=== PATIENT | male | born 1980 | race African-American/Black ===

== ENCOUNTER 2017-02-03 10:52 | Emergency (ER) | payer SELFPAY ==
[2017-02-03] MEDS ORDERED: ONDANSETRON 4 MG TAB.RAPDIS PO ONE (11:13)
[2017-02-03] MEDS ORDERED: NORMAL SALINE 1000 ML 1,000 ML IV ONE (11:14)
--- NOTE | 2017-02-03 11:14 | ER Document Report ---
ED Medical Screen (RME) - General Chief Complaint: Vomiting Stated Complaint: VOMITING Notes: This 36-year-old male patient take 2 diabetes reports onset last night of nausea and vomiting with one episode of diarrhea. He does feel little weak. He was sweating some. He did not check sugars last night. I have greeted and performed a rapid initial assessment of this patient. A comprehensive ED assessment and evaluation of the patient, analysis of test results and completion of the medical decision making process will be conducted by additional ED providers. TRAVEL OUTSIDE OF THE [place] IN LAST 30 DAYS: No - Related Data Allergies/Adverse Reactions: No Known Allergies Allergy (Unverified 04/24/13 06:11) Past Medical History Neurological Medical History: Reports: Hx Seizures - possible Renal/ Medical History: Denies: Hx Peritoneal Dialysis - Immunizations Hx Diphtheria, Pertussis, Tetanus Vaccination: Yes - 04/24/2013 Physical Exam - Vital signs Vitals: Temp Pulse Resp BP Pulse Ox 98.2 F 70 16 119/73 99 02/03/17 10:55 02/03/17 10:55 02/03/17 10:55 02/03/17 10:55 02/03/17 10:55 Course - Vital Signs Vital signs: Temp Pulse Resp BP Pulse Ox 98.2 F 70 16 119/73 99 02/03/17 10:55 02/03/17 10:55 02/03/17 10:55 02/03/17 10:55 02/03/17 10:55 - Laboratory Result Diagrams: 02/03/17 11:20 02/03/17 11:20
[2017-02-03 11:43] LABS: ABSOLUTE EOSINOPHILS # (AUTO) 0.1 10^3/uL (0.0-0.6); ABSOLUTE LYMPHOCYTES (AUTO) 1.5 10^3/uL (0.5-4.7); ABSOLUTE MONOCYTES (AUTO) 0.6 10^3/uL (0.1-1.4); ABSOLUTE NEUT (AUTO) 5.7 10^3/uL (1.7-8.2); BASOPHILS % (AUTO) 0.3 % (0-2); EOSINOPHILS % (AUTO) 1.2 % (0-6); HEMATOCRIT 48.2 % (37.9-51.0); HEMOGLOBIN 16.4 g/dL (13.5-17.0); MEAN CORPUSCULAR HEMOGLOBIN 31.6 pg (27.0-33.4); MEAN CORPUSCULAR VOLUME 93 fl (80-97); MONOCYTES % (AUTO) 7.9 % (3-13); RED BLOOD COUNT 5.18 10^6/uL (4.35-5.55); RED CELL DISTRIBUTION WIDTH 13.2 % (11.5-14.0); SEGMENTED NEUTROPHILS % (AUTO) 71.6 % (42-78)
[2017-02-03 12:03] LABS: ALANINE AMINOTRANSFERASE 20 U/L (21-72); ALBUMIN 4.8 g/dL (3.5-5.0); ALKALINE PHOSPHATASE 69 U/L (38-126); ANION GAP 14 (5-19); ASPARTATE AMINO TRANSFERASE 22 U/L (17-59); BILIRUBIN,DIRECT 0.1 mg/dL (0.0-0.4); BILIRUBIN,TOTAL 0.5 mg/dL (0.2-1.3); BLOOD UREA NITROGEN 12 mg/dL (7-20); CALCIUM 9.8 mg/dL (8.4-10.2); CARBON DIOXIDE 28 mmol/L (22-30); CHLORIDE 99 mmol/L (98-107); CREATININE RESULT 1.04 mg/dL (0.52-1.25); GLUCOSE 119 mg/dL (75-110); POTASSIUM 4.4 mmol/L (3.6-5.0); SODIUM 141.4 mmol/L (137-145); TOTAL PROTEIN 7.3 g/dL (6.3-8.2)
--- NOTE | 2017-02-03 12:20 | ER Document Report ---
ED GI/ - General Chief Complaint: Vomiting Stated Complaint: VOMITING Time seen by provider: 12:17 Mode of Arrival: Ambulatory Information source: Patient Notes: 36-year-old male presents to ED for nausea and vomiting last night with one episode of diarrhea. He states he feels a little weak. Has been sweating some. He is a type II diabetic. He does not check his sugar very often. States he ate [place] food that he states did not settle with him. States other people in his family also became nauseated last night. TRAVEL OUTSIDE OF THE [place] IN LAST 30 DAYS: No - HPI Patient complains to provider of: Diarrhea, Vomiting Onset: Yesterday Timing/Duration: Gone Quality of pain: Cramping Severity at maximum: Moderate Severity in ED: Almost gone Location: Other - Lower abdominal cramping Associated symptoms: Diarrhea, Nausea, Vomiting Exacerbated by: Denies Relieved by: Denies Similar symptoms previously: Yes Recently seen / treated by doctor: No - Related Data Allergies/Adverse Reactions: No Known Allergies Allergy (Unverified 04/24/13 06:11) Home Medications: Current Home Medications Amphetamine Sulfate [Evekeo] 10 mg PO BID 02/03/17 [History] Metformin HCl 500 mg PO BID 02/03/17 [History] Past Medical History - General Information source: Patient - Social History Smoking Status: Former Smoker Cigarette use (# per day): No Chew tobacco use (# tins/day): No Smoking Education Provided: No Frequency of alcohol use: Rare Drug Abuse: None Occupation: [employer] in the [employer] Lives with: Alone Family History: CVA, DM Patient has suicidal ideation: No Patient has homicidal ideation: No - Past Medical History Cardiac Medical History: Reports: None Pulmonary Medical History: Reports: None EENT Medical History: Reports: None Neurological Medical History: Reports: Hx Seizures - possible Endocrine Medical History: Reports: Hx Diabetes Mellitus Type 2 Renal/ Medical History: Reports: None Malignancy Medical History: Reports None GI Medical History: Reports: None Musculoskeltal Medical History: Reports None Skin Medical History: Reports None Psychiatric Medical History: Reports: Hx Attention Deficit Hyperactivity Disorder Traumatic Medical History: Reports: None Infectious Medical History: Reports: None Surgical Hx: Negative Past Surgical History: Reports: None - Immunizations Immunizations up to date: Yes Hx Diphtheria, Pertussis, Tetanus Vaccination: Yes - 04/24/2013 Review of Systems - Review of Systems Constitutional: No symptoms reported EENT: No symptoms reported Cardiovascular: No symptoms reported Respiratory: No symptoms reported Gastrointestinal: Diarrhea, Nausea, Vomiting Genitourinary: No symptoms reported Male Genitourinary: No symptoms reported Musculoskeletal: No symptoms reported Skin: No symptoms reported Hematologic/Lymphatic: No symptoms reported Neurological/Psychological: No symptoms reported -: Yes All other systems reviewed and negative Physical Exam - Vital signs Vitals: Temp Pulse Resp BP Pulse Ox 98.2 F 70 16 119/73 99 02/03/17 10:55 02/03/17 10:55 02/03/17 10:55 02/03/17 10:55 02/03/17 10:55 Interpretation: Normal - General General appearance: Appears well, Alert - HEENT Head: Normocephalic, Atraumatic Eyes: Normal Pupils: PERRL - Respiratory Respiratory status: No respiratory distress Chest status: Nontender Breath sounds: Normal Chest palpation: Normal - Cardiovascular Rhythm: Regular Heart sounds: Normal auscultation Murmur: No - Abdominal Inspection: Normal Distension: No distension Bowel sounds: Hyperactive Tenderness: Nontender. No: Tender Organomegaly: No organomegaly - Back Back: Normal, Nontender - Extremities General upper extremity: Normal inspection, Nontender, Normal color, Normal ROM , Normal temperature General lower extremity: Normal inspection, Nontender, Normal color, Normal ROM , Normal temperature, Normal weight bearing. No: Paul's sign - Neurological Neuro grossly intact: Yes Cognition: Normal Orientation: AAOx4 Paul Coma Scale Eye Opening: Spontaneous Paul Coma Scale Verbal: Oriented Paul Coma Scale Motor: Obeys Commands Paul Coma Scale Total: 15 Speech: Normal Motor strength normal: LUE, RUE, LLE, RLE Sensory: Normal - Psychological Associated symptoms: Normal affect, Normal mood - Skin Skin Temperature: Warm Skin Moisture: Dry Skin Color: Normal Course - Re-evaluation Re-evalutation: 02/03/17 13:06 Patient has been treated with Zofran and IV fluids. He states he has been able to tolerate food and fluid so far and will be discharged home with a small prescription of Zofran. - Vital Signs Vital signs: Temp Pulse Resp BP Pulse Ox 98.1 F 68 16 117/72 99 02/03/17 13:17 02/03/17 13:17 02/03/17 13:17 02/03/17 13:17 02/03/17 13:17 - Laboratory Result Diagrams: 02/03/17 11:20 02/03/17 11:20 Laboratory results interpreted by me: 02/03/17 11:20 Glucose 119 H ALT 20 L Discharge - Discharge Clinical Impression: Nausea and vomiting in adult Condition: Stable Disposition: HOME, SELF-CARE Additional Instructions: ABDOMINAL PAIN: There are many causes of abdominal pain. Pain can mean a serious problem requiring surgery (such as appendicitis). It can also be an innocent problem that goes away on its own (such as a viral infection). Often, time must pass to determine the cause of pain. The physician does not feel that hospitalization is necessary, at present. Things may change within the next 24 hours. Call the doctor or come back for re- examination if any problems occur, such as: (1) Pain that becomes more severe, steady, or becomes concentrated in one specific area. Also, pain that is more severe with movement or coughing. (2) Vomiting that persists or becomes more frequent. (3) Blood in the vomitus, urine, or bowel movements. Blood in the stool may have a tarry or black appearance. (4) Shaking chills or fever greater than 100 degrees F. (5) The abdomen becomes more distended or swollen. (6) Bowel movements cease. (7) Failure to improve as expected. Nausea or Vomiting, Nonspecific Vomiting (or nausea without vomiting) can be caused by many different problems. Of course, it can mean that something's wrong with the stomach, such as "stomach flu," ulcers, or inflammation. But it can also be a symptom of a problem that has nothing to do with the stomach or intestines. Vomiting is common with severe headaches, earaches, and tonsillitis. We see it with pneumonia or heart attacks. Drugs can cause nausea. Many abdominal problems cause vomiting; for example, gallstones, kidney stones, pancreatitis, and intestinal obstruction (blocked bowels). In most cases, curing the vomiting depends on fixing the problem that caused it. For temporary relief, we may use an anti-nausea medicine. For home use, we can prescribe suppositories, chewable pills, pills that dissolve in the mouth, or liquid anti-nausea drugs. If the vomiting seems to be caused by a problem in the stomach, acid-suppressing drugs may be prescribed as well. It's important to avoid dehydration. Sip clear liquids. Take increasing amounts of fluid over the first 24 hours. Then start small amounts of bland foods (such as dry toast, applesauce, mashed potato). Avoid aspirin, tobacco, and alcohol. Gradually resume your usual diet. If the vomiting worsens, if the problem that's making you vomit worsens, or if there's evidence of bleeding in the stomach (such as black, tarry stool, bloody or black vomit, or lightheadedness), you should return immediately. Call your doctor if you aren't improved in 24 to 36 hours. NORMAL EXAM AND WORKUP: At this time, your examination and workup show no significant abnormality. No significant abnormal physical findings are noted. All laboratory, EKG, and imaging (x-ray, CT scans, ultrasound) studies that were ordered show no significant abnormality. Although your examination and all studies that were ordered showed no significant abnormal finding, there are no examinations and no studies that are 100% accurate. There is always the possibility that some abnormality could exist and not be detected with physical examination or within the limits and capabilities of laboratory and other studies. You should return or follow up as you were instructed on your visit today for further evaluation if your symptoms do not resolve. ANTINAUSEA MEDICATION: You have been given a medication to suppress nausea and vomiting. This type of medication can be given as a shot, pill, or suppository. It will usually last for many hours. Pills and shots usually last six to eight hours, suppositories last about 12 hours. For the typical illness, only one or two doses of the medication may be necessary. Mild lightheadedness may occur. This type of medicine can cause drowsiness. Do not drive or operate dangerous machinery while under its influence. Do not mix with alcohol. See your doctor at once if you have muscle spasms or tightness, or uncontrollable motions (particularly of the neck, mouth, or jaw). Persistent vomiting or severe lightheadedness should also be evaluated by the physician. FOLLOW-UP CARE: If you have been referred to a physician for follow-up care, call the physician s office for an appointment as you were instructed or within the next two days. If you experience worsening or a significant change in your symptoms, notify the physician immediately or return to the Emergency Department at any time for re-evaluation. Prescriptions: Ondansetron [Zofran Odt 4 mg Tablet] 1 tab PO Q6H #15 tab.rapdis Forms: Return to Work
[2017-02-03 12:25] LABS: AMORPHOUS SEDIMENT,URINE TRACE /HPF; APPEARANCE,URINE CLOUDY; BILIRUBIN,URINE NEGATIVE (NEGATIVE); GLUCOSE, URINE NEGATIVE (NEGATIVE); KETONES,URINE NEGATIVE (NEGATIVE); LEUKOCYTE ESTERASE,URINE NEGATIVE (NEGATIVE); NITRITE,URINE NEGATIVE (NEGATIVE); PROTEIN,URINE NEGATIVE (NEGATIVE); URINE SPECIFIC GRAVITY 1.027; UROBILINOGEN,URINE NEGATIVE mg/dL (<2.0)
[2017-02-03 13:18] VITALS: BP 117/72
== END 2017-02-03 13:18 | disposition home or self-care (01) ==
LOC: ER 10:52
DX: R11.2 Nausea with vomiting, unspecified (principal); R19.7 Diarrhea, unspecified; R53.1 Weakness; E11.9 Type 2 diabetes mellitus without complications; Z87.891 Personal history of nicotine dependence
CPT/HCPCS: 99284; 36415; 85025; 80053; 81001; S0119; J7030

== ENCOUNTER 2019-03-11 09:59 | Inpatient (IN) | payer SELFPAY ==
--- NOTE | 2019-03-11 10:47 | RADIOLOGY REPORT (SQ) ---
EXAM DESCRIPTION: CT HEAD WITHOUT COMPLETED DATE/TIME: 03/11/2019 10:35 am REASON FOR STUDY: bed 18 seizure hit head ams per pat COMPARISON: None. TECHNIQUE: Axial images acquired through the brain without intravenous contrast. Images reviewed wi th bone, brain and subdural windows. Additional sagittal and coronal reconstructions were generated. Images stored on PACS. All CT scanners at this facility use dose modulation, iterative reconstruction, and/or weight based d osing when appropriate to reduce radiation dose to as low as reasonably achievable (ALARA). [facility]: Dose Right [facility]: CareDose [facility]: Dose Right [facility]: Teradose 4D [facility]: Smart [employer]MET[employer] RADIATION DOSE: CT Rad equipment meets quality standard of care and radiation dose reduction techniq ues were employed. CTDIvol: 53.2 mGy. DLP: 991 mGy-cm. mGy. LIMITATIONS: None. FINDINGS: VENTRICLES: Normal size and contour. CEREBRUM: No masses. No hemorrhage. No midline shift. No evidence for acute infarction. Normal gra y/white matter differentiation. No areas of low density in the white matter. CEREBELLUM: No masses. No hemorrhage. No alteration of density. No evidence for acute infarction. EXTRAAXIAL SPACES: No fluid collections. No masses. ORBITS AND GLOBE: No intra- or extraconal masses. Normal contour of globe without masses. CALVARIUM: No fracture. PARANASAL SINUSES: No fluid or mucosal thickening. SOFT TISSUES: No mass or hematoma. OTHER: No other significant finding. IMPRESSION: NORMAL BRAIN CT WITHOUT CONTRAST. EVIDENCE OF ACUTE STROKE: NO. COMMENT: Quality ID # 436: Final reports with documentation of one or more dose reduction techniques (e.g., Automated exposure control, adjustment of the mA and/or kV according to patient size, use of iterative reconstruction technique) TECHNICAL DOCUMENTATION: JOB ID: [id number] [employer]- All Rights Reserved Reading location - IP/workstation name: [email or web address]
--- NOTE | 2019-03-11 10:48 | RADIOLOGY REPORT (SQ) ---
EXAM DESCRIPTION: CT CERVICAL SPINE WITHOUT COMPLETED DATE/TIME: 03/11/2019 10:35 am REASON FOR STUDY: bed 18 seizure hit head ams per pat COMPARISON: 04/24/2018 TECHNIQUE: Axial images acquired through the cervical spine without intravenous contrast. Images re viewed with lung, soft tissue and bone windows. Reconstructed coronal and sagittal MPR images review ed. Images stored on PACS. All CT scanners at this facility use dose modulation, iterative reconstruction, and/or weight based d osing when appropriate to reduce radiation dose to as low as reasonably achievable (ALARA). [facility]: Dose Right [facility]: CareDose [facility]: Dose Right [facility]: Teradose 4D [facility]: Smart Technologies RADIATION DOSE: CT Rad equipment meets quality standard of care and radiation dose reduction techniq ues were employed. CTDIvol: 19.2 mGy. DLP: 331 mGy-cm. mGy. LIMITATIONS: None. FINDINGS: ALIGNMENT: Anatomic. MINERALIZATION: Normal. VERTEBRAL BODIES: No fractures or dislocation. DISCS: No significant disc disease. FACETS, LATERAL MASSES, POSTERIOR ELEMENTS: No fractures. No dislocation. No acute findings. HARDWARE: None in the spine. VISUALIZED RIBS: No fractures. LUNG APICES AND SOFT TISSUES: No significant or acute findings. OTHER: No other significant finding. IMPRESSION: NO ACUTE OR SIGNIFICANT FINDINGS IN THE CERVICAL SPINE. TECHNICAL DOCUMENTATION: JOB ID: [id number] Quality ID # [id number]: Final reports with documentation of one or more dose reduction techniques (e.g., Au tomated exposure control, adjustment of the mA and/or kV according to patient size, use of iterative reconstruction technique) 2010 [employer]- All Rights Reserved Reading location - IP/workstation name: [email or web address]
[2019-03-11 11:00] LABS: HEMATOCRIT 46.7 % (37.9-51.0); HEMOGLOBIN 15.5 g/dL (13.5-17.0); MEAN CORPUSCULAR HEMOGLOBIN 30.9 pg (27.0-33.4); MEAN CORPUSCULAR HGB CONC 33.1 g/dL (32.0-36.0); MEAN CORPUSCULAR VOLUME 93 fl (80-97); PLATELET COUNT 290 10^3/uL (150-450); RED CELL DISTRIBUTION WIDTH 13.5 % (11.5-14.0); WHITE BLOOD COUNT 15.9 10^3/uL (4.0-10.5)
[2019-03-11 11:06] LABS: ALANINE AMINOTRANSFERASE 41 U/L (21-72); ALKALINE PHOSPHATASE 72 U/L (38-126); ASPARTATE AMINO TRANSFERASE 53 U/L (17-59); BILIRUBIN,DIRECT 0.3 mg/dL (0.0-0.4); BILIRUBIN,TOTAL 0.3 mg/dL (0.2-1.3); BLOOD UREA NITROGEN 16 mg/dL (7-20); CALCIUM 10.5 mg/dL (8.4-10.2); CARBON DIOXIDE 15 mmol/L (22-30); CHLORIDE 102 mmol/L (98-107); GLUCOSE 149 mg/dL (75-110); POTASSIUM 4.2 mmol/L (3.6-5.0); SODIUM 141.2 mmol/L (137-145); TOTAL PROTEIN 7.9 g/dL (6.3-8.2)
[2019-03-11 11:08] LABS: ANION GAP 24 (5-19)
[2019-03-11 11:38] LABS: ABSOLUTE LYMPHOCYTES# (MANUAL) 0.6 10^3/uL (0.5-4.7); ABSOLUTE MONOCYTES # (MANUAL) 0.5 10^3/uL (0.1-1.4); ABSOLUTE NEUTROPHILS# (MANUAL) 14.8 10^3/uL (1.7-8.2); BASOPHILS % (MANUAL) 0 % (0-2); EOSINOPHILS % (MANUAL) 0 % (0-6); LYMPHOCYTES % (MANUAL) 4 % (13-45); MONOCYTES % (MANUAL) 3 % (3-13); SEGMENTED NEUTROPHILS % (MAN) 93 % (42-78); TOTAL CELLS COUNTED 100
[2019-03-11 11:40] LABS: PLATELET COMMENT ADEQUATE; RBC MORPHOLOGY COMMENT NORMO-CYTIC/CHROMIC
[2019-03-11 11:59] LABS: APPEARANCE,URINE CLOUDY; BILIRUBIN,URINE NEGATIVE (NEGATIVE); COLOR,URINE YELLOW; GLUCOSE, URINE NEGATIVE (NEGATIVE); KETONES,URINE NEGATIVE (NEGATIVE); LEUKOCYTE ESTERASE,URINE NEGATIVE (NEGATIVE); NITRITE,URINE NEGATIVE (NEGATIVE); PROTEIN,URINE 100 mg/dL (NEGATIVE); URINE SPECIFIC GRAVITY 1.017; UROBILINOGEN,URINE NEGATIVE mg/dL (<2.0)
--- NOTE | 2019-03-11 12:18 | RADIOLOGY REPORT (SQ) ---
EXAM DESCRIPTION: L SPINE WHOLE COMPLETED DATE/TIME: 03/11/2019 12:03 pm REASON FOR STUDY: fall, change in loc pain COMPARISON: None. NUMBER OF VIEWS: Five views including obliques. TECHNIQUE: AP, lateral, oblique, and sacral radiographic images acquired of the lumbar spine. LIMITATIONS: None. FINDINGS: MINERALIZATION: Normal. SEGMENTATION: Normal. No transitional anatomy. ALIGNMENT: Normal. VERTEBRAE: Maintained height. No fracture or worrisome bone lesion. DISCS: Disc space narrowing and osteophyte formation L5-S1. POSTERIOR ELEMENTS: Pedicles and facets are intact. No pars defect or posterior arch defects. HARDWARE: None in the spine. PARASPINAL SOFT TISSUES: Normal. PELVIS: Intact as visualized. No fractures or worrisome bone lesions. SI joints intact. OTHER: No other significant finding. IMPRESSION: No acute findings. TECHNICAL DOCUMENTATION: JOB ID: [id number] [employer]- All Rights Reserved Reading location - IP/workstation name: [email or web address]
[2019-03-11] MEDS ORDERED: NORMAL SALINE 1000 ML 1,000 ML IV ONE ×2 (12:38→16:32)
--- NOTE | 2019-03-11 14:37 | RADIOLOGY REPORT (SQ) ---
EXAM DESCRIPTION: U/S RETROPERITON LTD COMPLETED DATE/TIME: 03/11/2019 2:28 pm REASON FOR STUDY: pain COMPARISON: None. TECHNIQUE: Dynamic and static grayscale images acquired of the kidneys and bladder and recorded on P ACS. Additional selected color Doppler and spectral images recorded. LIMITATIONS: None. FINDINGS: RIGHT KIDNEY: Normal size. Normal echogenicity. No solid or suspicious masses. No h ydronephrosis. No calcifications. LEFT KIDNEY: Normal size. Normal echogenicity. No solid or suspicious masses. No hydronephrosi s. No calcifications. BLADDER: No masses. OTHER FINDINGS: No other significant finding. IMPRESSION: NORMAL RENAL AND BLADDER ULTRASOUND. TECHNICAL DOCUMENTATION: JOB ID: [id number] [employer]- All Rights Reserved Reading location - IP/workstation name: [email or web address]
--- NOTE | 2019-03-11 15:30 | ER Document Report ---
ED General - General Chief Complaint: Probable Seizure Stated Complaint: ALTERED MENTAL STATUS Time Seen by Provider: 03/11/19 10:44 Mode of Arrival: Medic Information source: Patient Notes: Patient presents emergency department via EMS for altered mental status. Patient reports he works with [employer]. He was found unresponsive on the floor with his head on a shelf, this was unwitnessed possibly post ictal.. No urinary incontinence. patient is now alert and oriented reports low back pain. Reports he works at the [employer], it has been very hot he has not been eating or drinking the way he should. He does not take medication for his seizure history. He also is a diabetic is supposed to take metformin but did not take it this morning. Denies other symptoms such as fever vomiting diarrhea. TRAVEL OUTSIDE OF THE [place] IN LAST 30 DAYS: No - HPI Onset: Just prior to arrival Onset/Duration: Sudden Quality of pain: Achy Associated symptoms: None Exacerbated by: Denies Relieved by: Denies Similar symptoms previously: No Recently seen / treated by doctor: No - Related Data Allergies/Adverse Reactions: No Known Allergies Allergy (Verified 03/11/19 10:07) Past Medical History - General Information source: Patient - Social History Smoking Status: Never Smoker Cigarette use (# per day): No Frequency of alcohol use: None Drug Abuse: None Occupation: [employer] Family History: CVA, DM Patient has suicidal ideation: No Patient has homicidal ideation: No Neurological Medical History: Reports: Hx Seizures - possible Endocrine Medical History: Reports: Hx Diabetes Mellitus Type 2 Renal/ Medical History: Denies: Hx Peritoneal Dialysis Psychiatric Medical History: Reports: Hx Attention Deficit Hyperactivity D isorder - Immunizations Immunizations up to date: Yes Hx Diphtheria, Pertussis, Tetanus Vaccination: Yes - 04/24/2013 Review of Systems - Review of Systems Notes: Review HPI for review of systems., All other systems negative Physical Exam - Vital signs Vitals: Temp 98.2 F 03/11/19 10:07 - Notes Notes: PHYSICAL EXAMINATION: GENERAL: nontoxic looking and in no acute distress HEAD: Atraumatic, normocephalic. EYES: Pupils equal round and reactive to light, extraocular movements intact, sclera anicteric, conjunctiva are normal. ENT: nares patent, oropharynx clear without exudates. Moist mucous membranes. NECK: Normal range of motion, supple without lymphadenopathy LUNGS: CTAB and equal. No wheezes rales or rhonchi. HEART: Regular rate and rhythm without murmurs ABDOMEN: Soft, no tenderness. No guarding, no rebound BACK: Low back ttp, good distal movement and sensation no weakness EXTREMITIES: Normal range of motion, no pitting edema. NEUROLOGICAL: Cranial nerves grossly intact. Normal sensory/motor exams. PSYCH: Normal mood, normal affect. SKIN: Warm, Dry, normal turgor, no rashes or lesions noted Course - Re-evaluation Re-evalutation: 03/11/19 CT is negative for head neck injury. Complains of low back pain will do radiology exam. White count is 15.9 anion gap is 24 creatinine is 1.63 will treat with fluids. Check CK 03/11/19 15:25 Patient is reporting feels much better. He is received a bag of fluids. He has drank a bottle of Gatorade eating Cheerios. 03/11/19 CK [address] ash advises Keppra loading dose admit. Patient to be admitted to the services of the hospitalist for rhabdo acute kidney injury Dictation of this chart was performed using voice recognition software; therefore, there may be some unintended grammatical errors. - Vital Signs Vital signs: Temp Pulse Resp BP Pulse Ox 98.4 F 80 20 136/92 H 100 03/11/19 20:00 03/11/19 17:27 03/11/19 20:30 03/11/19 20:30 03/11/19 20:30 - Laboratory Result Diagrams: 03/11/19 10:09 03/11/19 10:09 Laboratory results interpreted by me: 03/11/19 03/11/19 03/11/19 10:09 10:09 10:09 WBC 15.9 H Seg Neuts % (Manual) 93 H Lymphocytes % (Manual) 4 L Abs Neuts (Manual) 14.8 H Carbon Dioxide 15 L Anion Gap 24 H Creatinine 1.63 H Est GFR ( Amer) 57 L Est GFR (Non-Af Amer) 47 L Glucose 149 H Calcium 10.5 H Creatine Kinase 2009 H Urine Protein Urine Blood 03/11/19 11:36 WBC Seg Neuts % (Manual) Lymphocytes % (Manual) Abs Neuts (Manual) Carbon Dioxide Anion Gap Creatinine Est GFR ( Amer) Est GFR (Non-Af Amer) Glucose Calcium Creatine Kinase Urine Protein 100 H Urine Blood MODERATE H - Diagnostic Test Radiology reviewed: Image reviewed, Reports reviewed - EXAM DESCRIPTION: U/S [employer] COMPLETED DATE/TIME: 03/11/2019 2:28 pm REASON FOR STUDY: pain COMPARISON: None. TECHNIQUE: Dynamic and static grayscale images acquir ed of the kidneys and bladder and recorded on PACS. Additional selected color Doppler and spectral images recorded. LIMITATIONS: None. FINDINGS: RIGHT KIDNEY: Normal size. Normal echogenicity. No solid or suspicious masses. No hydronephrosis. No calcifications. LEFT KIDNEY: Normal size. Normal echogenicity. No solid or suspicious masses. No hydronephrosis. No calcifications. BLADDER: No masses. OTHER FINDINGS: No other significant finding. IMPRESSION: NORMAL RENAL AND BLADDER ULTRASOUND. TECHNICAL DOCUMENTATION: JOB ID: [id number]- All Rights Reserved Reading location - IP/workstation name: [email or web address] Dictated by: BRUNO ORTEGA MD [id number] CC: TOLU PARSONS NP > 03/11/19 1437 [employer] Name: BRUNO ORTEGA EXAM DESCRIPTION: L SPINE WHOLE COMPLETED DATE/TIME: 03/11/2019 12:03 pm REASON FOR STUDY: fall, change in loc pain COMPARISON: None. NUMBER OF VIEWS: Five views including obliques. TECHNIQUE: AP, lateral, oblique, and sacral radiographic images acquired of the lumbar spine. LIMITATIONS: None. FINDINGS: MINERALIZATION: Normal. SEGMENTATION: Normal. No transitional anatomy. ALIGNMENT: Normal. VERTEBRAE: Maintained height. No fracture or worrisome bone lesion. DISCS: Disc space narrowing and osteophyte formation L5-S1. POSTERIOR ELEMENTS: Pedicles and facets are intact. No pars defect or posterior arch defects. HARDWARE: None in the spine. PARASPINAL SOFT TISSUES: Normal. PELVIS: Intact as visualized. No fractures or worrisome bone lesions. SI joints intact. OTHER: No other significant finding. IMPRESSION: No acute findings. TECHNICAL DOCUMENTATION: JOB ID: [id number] [employer]- All Rights Reserved EXAM DESCRIPTION: CT CERVICAL SPINE WITHOUT COMPLETED DATE/TIME: 03/11/2019 10:35 am REASON FOR STUDY: bed 18 seizure hit head ams per pat COMPARISON: 04/24/2018 TECHNIQUE: Axial images acquired through the cervical spine without intravenous contrast. Images reviewed with lung, soft tissue and bone windows. Reconstructed coronal and sagittal MPR images reviewed. Images stored on PACS. All CT scanners at this facility use dose modulation, iterative reconstruction, and/or weight based dosing when appropriate to reduce radiation dose to as low as reasonably achievable (ALARA). [facility]: Dose Right [facility]: CareDose [facility]: Dose Rig ht [facility]: Teradose 4D [facility]: Smart Technologies RADIATION DOSE: CT Rad equipment meets quality standard of care and radiation dose reduction techniques were employed. CTDIvol: 19.2 mGy. DLP: 331 mGy-cm. mGy. LIMITATIONS: None. FINDINGS: ALIGNMENT: Anatomic. MINERALIZATION: Normal. VERTEBRAL BODIES: No fractures or dislocation. DISCS: No significant disc disease. FACETS, LATERAL MASSES, POSTERIOR ELEMENTS: No fractures. No dislocation. No acute findings. HARDWARE: None in the spine. VISUALIZED RIBS: No fractures. LUNG APICES AND SOFT TISSUES: No significant or acute findings. OTHER: No other significant finding. IMPRESSION: NO ACUTE OR SIGNIFICANT FINDINGS IN THE CERVICAL SPINE. Discharge - Discharge Clinical Impression: SHARLENE (acute kidney injury), Seizure Rhabdomyolysis Qualifiers: Encounter type: initial encounter Condition: Stable Disposition: ADMITTED INPATIENT Admitting Provider: Yessenia (Hospitalist) Unit Admitted: Telemetry
[2019-03-11] MEDS ORDERED: LEVETIRACETAM INJ/PF 500 MG/5 ML SDV IV ONE (16:56)
[2019-03-11] MEDS: NORMAL SALINE 1000 ML 1,000 ML IV PRN (18:26)
--- NOTE | 2019-03-11 18:29 | PDOC H&P ---
History of Present Illness Admission Date/PCP: 03/11/19 17:11 Patient complains of: syncope History of Present Illness: CHUCKIE BAL is a 38 year old male with a remote history of childhood seizure not on any antiseizure medication, diet controlled DM type 2 who was brought in [place] 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 He says he has been apparently well and did not have any acute complaint. He says he did not feel any dizziness, palpitations or other symptoms. He was apparently found by school personnel lying unresponsive on the [facility] floor. Nobody witnessed the event. There is no reported urina ry or bowel incontinence. 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 He does complain of lower back pain which he said started this morning but before he passed out. Past Medical History Neurological Medical History: Reports: Seizures - possible Endocrine Medical History: Reports: Diabetes Mellitus Type 2 Psychiatric Medical History: Reports: Attention Deficit Hyperactivity Disorder Social History Smoking Status: Never Smoker Family History Family History: CVA, DM Parental Family History Reviewed: Yes - No premature CAD Children Family History Reviewed: No Sibling(s) Family History Reviewed.: No Medication/Allergy Home Medications: Amphetamine Sulfate [Evekeo] 5 mg PO BID 03/11/19 Allergies/Adverse Reactions: No Known Allergies Allergy (Verified 03/11/19 10:07) Physical Exam Vital Signs: Temp Pulse Resp BP Pulse Ox 98.2 F 80 18 135/81 H 99 03/11/19 10:07 03/11/19 17:27 03/11/19 17:35 03/11/19 17:35 03/11/19 17:35 Intake & Output 03/10/19 03/11/19 03/12/19 06:59 06:59 06:59 Weight 167 lb 12.348 oz General appearance: PRESENT: no acute distress, well-developed, well-nourished Head exam: PRESENT: atraumatic, normocephalic Eye exam: PRESENT: conjunctiva pink, EOMI, PERRLA. ABSENT: scleral icterus Ear exam: PRESENT: normal external ear exam Mouth exam: PRESENT: moist, tongue midline Neck exam: ABSENT: carotid bruit, JVD, lymphadenopathy, thyromegaly Respiratory exam: PRESENT: clear to auscultation dee. ABSENT: rales, rhonchi, wheezes Cardiovascular exam: PRESENT: RRR. ABSENT: diastolic murmur, rubs, systolic murmur Pulses: PRESENT: normal dorsalis pedis pul GI/Abdominal exam: PRESENT: normal bowel sounds, soft. ABSENT: distended, guarding, mass, organolmegaly, rebound, tenderness Rectal exam: PRESENT: deferred Neurological exam: PRESENT: alert, awake, oriented to person, oriented to place, oriented to time, oriented to situation, CN II-XII grossly intact. ABSENT: motor sensory deficit Results Laboratory Results: 03/11/19 10:09 03/11/19 10:09 03/11/19 03/11/19 03/11/19 10:09 10:09 11:36 WBC 15.9 H RBC 5.00 Hgb 15.5 Hct 46.7 MCV 93 MCH 30.9 MCHC 33.1 RDW 13.5 Plt Count 290 Seg Neutrophils % Not Reportable Lymphocytes % Not Reportable Monocytes % Not Reportable Eosinophils % Not Reportable Basophils % Not Reportable Absolute Neutrophils Not Reportable Absolute Lymphocytes Not Reportable Absolute Monocytes Not Reportable Absolute Eosinophils Not Reportable Absolute Basophils Not Reportable Sodium 141.2 Potassium 4.2 Chloride 102 Carbon Dioxide 15 L Anion Gap 24 H BUN 16 Creatinine 1.63 H Est GFR ( Amer) 57 L Est GFR (Non-Af Amer) 47 L Glucose 149 H Calcium 10.5 H Total Bilirubin 0.3 AST 53 ALT 41 Alkaline Phosphatase 72 Total Protein 7.9 Albumin 5.0 Urine Color YELLOW Urine Appearance CLOUDY Urine pH 5.0 Ur Specific Willis 1.017 Urine Protein 100 H Urine Glucose (UA) NEGATIVE Urine Ketones NEGATIVE Urine Blood MODERATE H Urine Nitrite NEGATIVE Ur Leukocyte Esterase NEGATIVE Urine WBC (Auto) 3 Urine RBC (Auto) 10 03/11/19 03/11/19 10:09 10:09 Creatine Kinase 2009 H CK-MB (CK-2) 3.06 Impressions: Cervical Spine CT 03/11/19 00:00 IMPRESSION: NO ACUTE OR SIGNIFICANT FINDINGS IN THE CERVICAL SPINE. Head CT 03/11/19 00:00 IMPRESSION: NORMAL BRAIN CT WITHOUT CONTRAST. EVIDENCE OF ACUTE STROKE: NO. Lumbar Spine X-Ray 03/11/19 10:54 IMPRESSION: No acute findings. Renal Ultrasound 03/11/19 13:39 IMPRESSION: NORMAL RENAL AND BLADDER ULTRASOUND. Assessment and Plan - Diagnosis (1) Syncope Is this a current diagnosis for this admission?: Yes Plan: Differential diagnoses include heat exhaustion as patient reports he was exposed to extreme heat at work and has not been hydrating himself well. He does have a history of seizure. He was started on IV Keppra in the ER. Will also check orthostatic vital signs will put in for an EEG. (2) SHARLENE (acute kidney injury) Is this a current diagnosis for this admission?: Yes Plan: Has received a liter fluid bolus in the ER. We will continue IV fluids. Repeat BMP tomorrow. (3) Rhabdomyolysis Qualifiers: Encounter type: initial encounter Is this a current diagnosis for this admission?: Yes Plan: IV fluids as mentioned. (4) Lower back pain Is this a current diagnosis for this admission?: Yes Plan: Reports experiencing lower back pain this morning which she experienced before he passed out. There is right-sided paraspinal lumbar tenderness on palpation. Lumbar x-ray was unremarkable. Consider pursuing MRI or CT if there is persistence of lower back pain. - Time Time Spent with patient: 25-34 minutes
[2019-03-11] MEDS: LEVETIRACETAM 500 MG TABLET PO SCH (21:26)
[2019-03-11] MEDS: HEPARIN SOD (PORCINE) 5,000 UNIT/ML 1 ML SYRINGE SUBCUT SCH (21:26)
[2019-03-12] MEDS: NORMAL SALINE 1000 ML 1,000 ML IV PRN ×2 (04:58→13:05)
[2019-03-12] MEDS: HEPARIN SOD (PORCINE) 5,000 UNIT/ML 1 ML SYRINGE SUBCUT SCH ×3 (05:00→22:18)
[2019-03-12 06:16] LABS: ABSOLUTE LYMPHOCYTES (AUTO) 1.3 10^3/uL (0.5-4.7); ABSOLUTE MONOCYTES (AUTO) 0.8 10^3/uL (0.1-1.4); ABSOLUTE NEUT (AUTO) 5.9 10^3/uL (1.7-8.2); BASOPHILS % (AUTO) 0.2 % (0-2); EOSINOPHILS % (AUTO) 0.4 % (0-6); HEMATOCRIT 39.8 % (37.9-51.0); MEAN CORPUSCULAR HEMOGLOBIN 31.2 pg (27.0-33.4); MEAN CORPUSCULAR HGB CONC 33.7 g/dL (32.0-36.0); MEAN CORPUSCULAR VOLUME 93 fl (80-97); MONOCYTES % (AUTO) 9.5 % (3-13); PLATELET COUNT 239 10^3/uL (150-450); RED BLOOD COUNT 4.28 10^6/uL (4.35-5.55); RED CELL DISTRIBUTION WIDTH 13.2 % (11.5-14.0); SEGMENTED NEUTROPHILS % (AUTO) 73.9 % (42-78); TOTAL CELLS COUNTED % (AUTO) 100 %; WHITE BLOOD COUNT 7.9 10^3/uL (4.0-10.5)
[2019-03-12 06:26] LABS: HEMOGLOBIN 13.4 g/dL (13.5-17.0)
[2019-03-12 06:33] LABS: ANION GAP 10 (5-19); BLOOD UREA NITROGEN 15 mg/dL (7-20); CALCIUM 8.7 mg/dL (8.4-10.2); CARBON DIOXIDE 21 mmol/L (22-30); CHLORIDE 110 mmol/L (98-107); GLUCOSE 107 mg/dL (75-110); POTASSIUM 4.1 mmol/L (3.6-5.0); SODIUM 140.9 mmol/L (137-145)
[2019-03-12 06:43] LABS: CREATINE KINASE 2622 U/L (55-170)
[2019-03-12] MEDS: LEVETIRACETAM 500 MG TABLET PO SCH ×2 (10:14→22:17)
--- NOTE | 2019-03-12 14:30 | NEURO WORKBENCH EEG REPORT ---
EEG Report Patient: Mann Coyne ID: [id number] Referring Doctor: Flakito Casas DOS: 03/12/2019 Medications: Porcine, Keppra History This is a 38 year old right handed man with a history of seizures diagnosed at age 1 with his last seizure at age 9, type 2 diabetes, and ADHD with an episode at work where his co-workers found him on the floor. This EEG was requested for possible seizure. EEG Interpretation This EEG was recorded in the awake and minimal drowsy states. The awake EEG is characterized by a well organized background with a well developed and reactive posterior dominant rhythm of 10Hz. Drowsiness is characterized by slowing of the background rhythms. Photic stimulation resulted in minimal driving. Hyperventilation resulted in no significant changes. There were rare generalized fragmentary spikes, left-predominant. Clinical correlation could not be noted (patient face not visible on camera). There were rare sharply contoured left temporal waveforms that were not definitively epileptiform. The EKG showed a regular rhythm. EEG Classification 1. Generalized spikes, fragmentary, left-predominant, rare 2. Sharply contoured waveforms, left temporal, rare EEG Impression This EEG is abnormal. There were rare generalized spikes (left -predominant) that can be seen in idiopathic epilepsies or can be inherited as an EEG trait. Clinical correlation is required. Given the left predominance, correlation with neuroimaging may be of interest. INTERPRETING NEUROLOGIST: Fernanda Dutton MD, [facility] Board Certified in Neurology, with special qualification in Child Neurology, and in Clinical Neurophysiology [facility]
--- NOTE | 2019-03-12 15:02 | PDOC PROGRESS REPORT ---
Subjective Progress Note for:: 03/12/19 Subjective:: CHUCKIE BAL is a 38 year old male with a remote history of childhood seizure not on any antiseizure medication, diet controlled DM type 2 who was brought in after [place] He was admitted for syncope secondary to questionable seizure versus heat exhaustion. He was noted to be in acute renal failure and rhabdomyolysis. No acute event overnight. He denies acute complaints. He is diuresing well with IV fluids. Reason For Visit: ACUTE RENAL FAILURE Physical Exam Vital Signs: Temp Pulse Resp BP Pulse Ox 98.1 F 83 16 134/70 H 100 03/12/19 12:00 03/12/19 12:00 03/12/19 12:00 03/12/19 12:00 03/12/19 12:00 Intake & Output 03/11/19 03/12/19 03/13/19 06:59 06:59 06:59 Intake Total 2540 360 Output Total 300 Balance 2240 360 Weight 173 lb 1.006 oz General appearance: PRESENT: no acute distress, well-developed, well-nourished Head exam: PRESENT: atraumatic, normocephalic Eye exam: PRESENT: conjunctiva pink, EOMI, PERRLA. ABSENT: scleral icterus Ear exam: PRESENT: normal external ear exam Mouth exam: PRESENT: moist, tongue midline Neck exam: ABSENT: carotid bruit, JVD, lymphadenopathy, thyromegaly Respiratory exam: PRESENT: clear to auscultation dee. ABSENT: rales, rhonchi, wheezes Cardiovascular exam: PRESENT: RRR. ABSENT: diastolic murmur, rubs, systolic murmur Pulses: PRESENT: normal dorsalis pedis pul GI/Abdominal exam: PRESENT: normal bowel sounds, soft. ABSENT: distended, guarding, mass, organolmegaly, rebound, tenderness Rectal exam: PRESENT: deferred Extremities exam: PRESENT: full ROM. ABSENT: calf tenderness, clubbing, pedal edema Neurological exam: PRESENT: alert, awake, oriented to person, oriented to place, oriented to time, oriented to situation, CN II-XII grossly intact. ABSENT: motor sensory deficit Results Laboratory Results: 03/12/19 05:15 03/12/19 05:15 03/12/19 03/12/19 05:15 05:15 WBC 7.9 RBC 4.28 L Hgb 13.4 L D Hct 39.8 MCV 93 MCH 31.2 MCHC 33.7 RDW 13.2 Plt Count 239 Seg Neutrophils % 73.9 Lymphocytes % 16.0 Monocytes % 9.5 Eosinophils % 0.4 Basophils % 0.2 Absolute Neutrophils 5.9 Absolute Lymphocytes 1.3 Absolute Monocytes 0.8 Absolute Eosinophils 0.0 Absolute Basophils 0.0 Sodium 140.9 Potassium 4.1 Chloride 110 H Carbon Dioxide 21 L Anion Gap 10 BUN 15 Creatinine 1.26 H Est GFR ( Amer) > 60 Est GFR (Non-Af Amer) > 60 Glucose 107 Calcium 8.7 03/11/19 03/11/19 03/12/19 10:09 10:09 05:15 Creatine Kinase 2009 H 2622 H CK-MB (CK-2) 3.06 Impressions: Cervical Spine CT 03/11/19 00:00 IMPRESSION: NO ACUTE OR SIGNIFICANT FINDINGS IN THE CERVICAL SPINE. Head CT 03/11/19 00:00 IMPRESSION: NORMAL BRAIN CT WITHOUT CONTRAST. EVIDENCE OF ACUTE STROKE: NO. Lumbar Spine X-Ray 03/11/19 10:54 IMPRESSION: No acute findings. Renal Ultrasound 03/11/19 13:39 IMPRESSION: NORMAL RENAL AND BLADDER ULTRASOUND. Assessment and Plan - Diagnosis (1) Syncope Is this a current diagnosis for this admission?: Yes Plan: Possibly from breakthrough seizure. Orthostats were negative. (2) Breakthrough seizure Is this a current diagnosis for this admission?: Yes Plan: EEG did reveal epileptiform discharges. No seizure-like activity since admission. Continue Keppra. Neurology follow-up on outpatient basis. (3) SHARLENE (acute kidney injury) Is this a current diagnosis for this admission?: Yes Plan: Improving with IV fluids. (4) Rhabdomyolysis Qualifiers: Encounter type: initial encounter Is this a current diagnosis for this admission?: Yes Plan: Continue IV fluids. - Time Time Spent with patient: 15-24 minutes
--- NOTE | 2019-03-12 22:38 | EKG REPORT ---
SEVERITY:- BORDERLINE ECG - SINUS TACHYCARDIA PROBABLE LEFT ATRIAL ABNORMALITY : Confirmed by: Ren Arellano 12-Mar-2019 22:36:55
[2019-03-13] MEDS: NORMAL SALINE 1000 ML 1,000 ML IV PRN (00:38)
[2019-03-13] MEDS: HEPARIN SOD (PORCINE) 5,000 UNIT/ML 1 ML SYRINGE SUBCUT SCH ×3 (05:22→21:25)
[2019-03-13 07:47] LABS: ANION GAP 8 (5-19); BLOOD UREA NITROGEN 11 mg/dL (7-20); CALCIUM 8.9 mg/dL (8.4-10.2); CARBON DIOXIDE 23 mmol/L (22-30); CHLORIDE 111 mmol/L (98-107); GLUCOSE 107 mg/dL (75-110); POTASSIUM 4.3 mmol/L (3.6-5.0); SODIUM 141.5 mmol/L (137-145)
[2019-03-13] MEDS ORDERED: NORMAL SALINE 1000 ML 1,000 ML IV PRN (09:30)
[2019-03-13] MEDS: LEVETIRACETAM 500 MG TABLET PO SCH ×2 (10:29→21:22)
--- NOTE | 2019-03-13 11:41 | PDOC PROGRESS REPORT ---
Subjective Progress Note for:: 03/13/19 Subjective:: CHUCKIE BAL is a 38 year old male with a remote history of childhood seizure not on any antiseizure medication, diet controlled DM type 2 who was brought in after [place] He was admitted for syncope secondary to questionable seizure versus heat exhaustion. He was noted to be in acute renal failure and rhabdomyolysis. No acute event overnight. He denies acute complaints. He is diuresing well with IV fluids. CK is trending up significantly. Creatinine has significantly improved. Reason For Visit: ACUTE RENAL FAILURE Physical Exam Vital Signs: Temp Pulse Resp BP Pulse Ox 97.6 F 62 16 122/68 99 03/13/19 07:30 03/13/19 07:30 03/13/19 07:30 03/13/19 07:30 03/13/19 07:30 Intake & Output 03/12/19 03/13/19 03/14/19 06:59 06:59 06:59 Intake Total 2540 4800 Output Total 300 Balance 2240 4800 Weight 173 lb 1.006 oz 178 lb 12.718 oz General appearance: PRESENT: no acute distress, well-developed, well-nourished Head exam: PRESENT: atraumatic, normocephalic Eye exam: PRESENT: conjunctiva pink, EOMI, PERRLA. ABSENT: scleral icterus Ear exam: PRESENT: normal external ear exam Mouth exam: PRESENT: moist, tongue midline Neck exam: ABSENT: carotid bruit, JVD, lymphadenopathy, thyromegaly Respiratory exam: PRESENT: clear to auscultation dee. ABSENT: rales, rhonchi, wheezes Cardiovascular exam: PRESENT: RRR. ABSENT: diastolic murmur, rubs, systolic murmur Pulses: PRESENT: normal dorsalis pedis pul GI/Abdominal exam: PRESENT: normal bowel sounds, soft. ABSENT: distended, guarding, mass, organolmegaly, rebound, tenderness Rectal exam: PRESENT: deferred Extremities exam: PRESENT: tenderness - on mid and lower back, with abrasions likely related to his fall Neurological exam: PRESENT: alert, awake, oriented to person, oriented to place, oriented to time, oriented to situation, CN II-XII grossly intact. ABSENT: motor sensory deficit Results Laboratory Results: 03/12/19 05:15 03/13/19 07:10 03/13/19 07:10 Sodium 141.5 Potassium 4.3 Chloride 111 H Carbon Dioxide 23 Anion Gap 8 BUN 11 Creatinine 1.03 Est GFR ( Amer) > 60 Est GFR (Non-Af Amer) > 60 Glucose 107 Calcium 8.9 03/11/19 03/11/19 03/12/19 10:09 10:09 05:15 Creatine Kinase 2009 H 2622 H CK-MB (CK-2) 3.06 03/12/19 03/13/19 17:35 07:10 Creatine Kinase 2619 H 5378 H CK-MB (CK-2) Impressions: Cervical Spine CT 03/11/19 00:00 IMPRESSION: NO ACUTE OR SIGNIFICANT FINDINGS IN THE CERVICAL SPINE. Head CT 03/11/19 00:00 IMPRESSION: NORMAL BRAIN CT WITHOUT CONTRAST. EVIDENCE OF ACUTE STROKE: NO. Lumbar Spine X-Ray 03/11/19 10:54 IMPRESSION: No acute findings. Renal Ultrasound 03/11/19 13:39 IMPRESSION: NORMAL RENAL AND BLADDER ULTRASOUND. Assessment and Plan - Diagnosis (1) Syncope Is this a current diagnosis for this admission?: Yes Plan: Possibly from breakthrough seizure. Orthostats were negative. (2) Breakthrough seizure Is this a current diagnosis for this admission?: Yes Plan: EEG did reveal epileptiform discharges. No seizure-like activity since admission. Continue Keppra. Neurology follow-up on outpatient basis. (3) SHARLENE (acute kidney injury) Is this a current diagnosis for this admission?: Yes Plan: Improving with IV fluids. (4) Rhabdomyolysis Qualifiers: Encounter type: initial encounter Is this a current diagnosis for this admission?: Yes Plan: Continue IV fluids. CK trending up. Increase IV fluids. Give another bolus. - Time Time Spent with patient: 15-24 minutes
[2019-03-14] MEDS: NORMAL SALINE 1000 ML 1,000 ML IV PRN ×4 (03:03→18:23)
[2019-03-14] MEDS: HEPARIN SOD (PORCINE) 5,000 UNIT/ML 1 ML SYRINGE SUBCUT SCH ×3 (05:29→21:21)
[2019-03-14 09:45] LABS: ANION GAP 12 (5-19); BLOOD UREA NITROGEN 8 mg/dL (7-20); CALCIUM 9.5 mg/dL (8.4-10.2); CARBON DIOXIDE 24 mmol/L (22-30); CHLORIDE 107 mmol/L (98-107); GLUCOSE 104 mg/dL (75-110); POTASSIUM 4.3 mmol/L (3.6-5.0); SODIUM 143.4 mmol/L (137-145)
[2019-03-14] MEDS: LEVETIRACETAM 500 MG TABLET PO SCH (09:45)
[2019-03-14 09:59] LABS: CREATINE KINASE 9875 U/L (55-170)
[2019-03-14] MEDS ORDERED: DIVALPROEX SODIUM 500 MG TAB.SR.24H PO SCH (11:00)
[2019-03-14] MEDS ORDERED: NORMAL SALINE 1000 ML 1,000 ML IV PRN (11:45)
--- NOTE | 2019-03-14 12:58 | PDOC PROGRESS REPORT ---
Subjective Progress Note for:: 03/14/19 Subjective:: CHUCKIE BAL is a 38 year old male with a remote history of childhood seizure not on any antiseizure medication, diet controlled DM type 2 who was brought in [place] He was admitted for syncope secondary to questionable seizure versus heat exhaustion. He was noted to be in acute renal failure and rhabdomyolysis. 03/13: No acute event overnight. He denies acute complaints. He is diuresing well with IV fluids. 03/14: Denies acute complaint. His CK initially improved with IV fluids but later has been significantly trending up despite aggressive IV fluid resuscitation and now in the 9000s. Notably, his creatinine has recovered. Suspecting Keppra- induced rhabdo. Will DC Keppra and switch to Depakote. Reason For Visit: SYNCOPE,ACUTE RENAL FAILURE Physical Exam Vital Signs: Temp Pulse Resp BP Pulse Ox 98.5 F 64 15 123/60 95 03/14/19 11:42 03/14/19 11:42 03/14/19 11:42 03/14/19 11:42 03/14/19 11:42 Intake & Output 03/13/19 03/14/19 03/15/19 06:59 06:59 06:59 Intake Total 4800 3260 1420 Balance 4800 3260 1420 Weight 178 lb 12.718 oz 181 lb 7.047 oz General appearance: PRESENT: no acute distress, well-developed, well-nourished Head exam: PRESENT: atraumatic, normocephalic Eye exam: PRESENT: conjunctiva pink, EOMI, PERRLA. ABSENT: scleral icterus Ear exam: PRESENT: normal external ear exam Mouth exam: PRESENT: moist, tongue midline Neck exam: ABSENT: carotid bruit, JVD, lymphadenopathy, thyromegaly Respiratory exam: PRESENT: clear to auscultation dee. ABSENT: rales, rhonchi, wheezes Cardiovascular exam: PRESENT: RRR. ABSENT: diastolic murmur, rubs, systolic murmur Pulses: PRESENT: normal dorsalis pedis pul GI/Abdominal exam: PRESENT: normal bowel sounds, soft. ABSENT: distended, guarding, mass, organolmegaly, rebound, tenderness Rectal exam: PRESENT: deferred Extremities exam: PRESENT: full ROM. ABSENT: calf tenderness, clubbing, pedal edema Neurological exam: PRESENT: alert, awake, oriented to person, oriented to place, oriented to time, oriented to situation, CN II-XII grossly intact. ABSENT: motor sensory deficit Skin exam: PRESENT: dry, intact, warm. ABSENT: cyanosis, rash Results Laboratory Results: 03/12/19 05:15 03/14/19 08:58 03/14/19 08:58 Sodium 143.4 Potassium 4.3 Chloride 107 Carbon Dioxide 24 Anion Gap 12 BUN 8 Creatinine 0.96 Est GFR ( Amer) > 60 Est GFR (Non-Af Amer) > 60 Glucose 104 Calcium 9.5 03/11/19 03/11/19 03/12/19 10:09 10:09 05:15 Creatine Kinase 2009 H 2622 H CK-MB (CK-2) 3.06 03/12/19 03/13/19 03/14/19 17:35 07:10 08:58 Creatine Kinase 2619 H 5378 H 9875 H CK-MB (CK-2) Impressions: Cervical Spine CT 03/11/19 00:00 IMPRESSION: NO ACUTE OR SIGNIFICANT FINDINGS IN THE CERVICAL SPINE. Head CT 03/11/19 00:00 IMPRESSION: NORMAL BRAIN CT WITHOUT CONTRAST. EVIDENCE OF ACUTE STROKE: NO. Lumbar Spine X-Ray 03/11/19 10:54 IMPRESSION: No acute findings. Renal Ultrasound 03/11/19 13:39 IMPRESSION: NORMAL RENAL AND BLADDER ULTRASOUND. Assessment and Plan - Diagnosis (1) Rhabdomyolysis Qualifiers: Encounter type: initial encounter Is this a current diagnosis for this admission?: Yes Plan: Continue IV fluids. 03/14: His CK initially improved with IV fluids but later has been significantly trending up despite aggressive IV fluid resuscitation and now in the 9000s. Notably, his creatinine has recovered. Suspecting Keppra-induced rhabdo. Will DC Keppra and switch to Depakote. (2) Syncope Is this a current diagnosis for this admission?: Yes Plan: Possibly from breakthrough seizure. Orthostats were negative. EEG is positive for epileptiform discharges. (3) Breakthrough seizure Is this a current diagnosis for this admission?: Yes Plan: EEG did reveal epileptiform discharges. No seizure-like activity since admission. Continue Keppra. Neurology follow-up on outpatient basis. 03/14: Suspecting Keppra-induced rhabdo. Will DC Keppra and switch to Depakote. (4) SHARLENE (acute kidney injury) Is this a current diagnosis for this admission?: Yes Plan: Improving with IV fluids. - Time Time Spent with patient: 15-24 minutes
--- NOTE | 2019-03-14 20:18 | RADIOLOGY REPORT (SQ) ---
EXAM DESCRIPTION: MR LUMBAR SPINE WITHOUT IV CONTRAST COMPLETED DATE/TME: 03/14/2019 00:00 CLINICAL HISTORY: 38 years, Male, +spinal tenderness on palpation COMPARISON: Plain radiographs of the lumbar spine performed on 03/11/2019 TECHNIQUE: Multiplanar, multisequence MR images of the lumbar spine were obtained without the use of intravenous contrast. Images stored on PACS. LIMITATIONS: None. FINDINGS: Gullet Slitter images show a focus of susceptibility artifact about the right posterior paraspinal soft tissues, potentially related to an indwelling metallic foreign body at this location. Otherwise, Gullet Slitter images show no suspicious finding. The conus medullaris is normal in signal and morphology, terminating at the L1-L2 level. Anterior and posterior ligamentous structures are intact. There are no epidural fluid collections. Degenerative endplate changes are evident at L5-S1, specifically mixed Modic type I/type II degenerative endplate change. Otherwise, no suspicious bone marrow edema signal is evident elsewhere within the lumbar spine. Rounded foci of bright T1/T2 signal are evident about the S2 and S3 vertebral bodies, suspicious for benign hemangiomas. Lumbar vertebral body heights and alignments are maintained. Mild disc desiccation is evident at L5-S1. Otherwise, mild degenerative changes are noted, as follows: T11-L3 appear normal. At L3-L4, there is minimal disc bulge without significant foraminal or central canal stenosis. At L4-L5, there is minimal disc bulge without significant foraminal or central canal stenosis. At L5-S1, there is mild disc bulge with superimposed small central disc protrusion which flattens the ventral aspect of the thecal sac. Overall, findings result in mild bilateral neural foraminal stenosis, left greater than right. In addition, the central canal is mildly narrowed, measuring 9 mm in AP diameter. IMPRESSION: Mild multilevel lumbar spondylosis, most pronounced at L5-S1 where there are mixed Modic type I/type II degenerative endplate changes as well as mild disc bulge/central disc protrusion resulting in mild bilateral left greater than right neural foraminal stenosis and mild central canal stenosis. copyright 2010 [employer]- All Rights Reserved
[2019-03-15] MEDS: NORMAL SALINE 1000 ML 1,000 ML IV PRN ×2 (01:46→06:56)
[2019-03-15 05:14] LABS: BLOOD UREA NITROGEN 8 mg/dL (7-20); CALCIUM 8.7 mg/dL (8.4-10.2); CHLORIDE 106 mmol/L (98-107); GLUCOSE 87 mg/dL (75-110)
[2019-03-15 05:16] LABS: ANION GAP 10 (5-19); CARBON DIOXIDE 25 mmol/L (22-30)
[2019-03-15] MEDS: HEPARIN SOD (PORCINE) 5,000 UNIT/ML 1 ML SYRINGE SUBCUT SCH (05:26)
[2019-03-15 05:37] LABS: CREATINE KINASE 7504 U/L (55-170)
[2019-03-15 08:38] VITALS: BP 133/72
--- NOTE | 2019-03-15 08:43 | RADIOLOGY REPORT (SQ) ---
EXAM DESCRIPTION: CHEST SINGLE VIEW COMPLETED DATE/TIME: 03/15/2019 8:25 am REASON FOR STUDY: assess for congestion COMPARISON: None. EXAM PARAMETERS: NUMBER OF VIEWS: One view. TECHNIQUE: Single frontal radiographic view of the chest acquired. RADIATION DOSE: NA LIMITATIONS: None. FINDINGS: LUNGS AND PLEURA: Accentuation of right perihilar markings secondary to patient rotation. No acute infiltrates or effusions. MEDIASTINUM AND HILAR STRUCTURES: No masses. Contour normal. HEART AND VASCULAR STRUCTURES: The heart is normal. The pulmonary vasculature is normal. BONES: No acute findings. HARDWARE: None in the chest. OTHER: No other significant finding. IMPRESSION: NO ACUTE DISEASE. TECHNICAL DOCUMENTATION: JOB ID: [id number] [id number] 2010 [employer]- All Rights Reserved Reading location - IP/workstation name: [email or web address]
--- NOTE | 2019-03-15 16:24 | PDOC DISCHARGE SUMMARY ---
General - Admit/Disc Date/PCP Admission Date/Primary Care Provider: 03/13/19 13:27 Discharge Date: 03/15/19 - Discharge Diagnosis (1) Rhabdomyolysis Is this a current diagnosis for this admission?: Yes (2) Syncope Is this a current diagnosis for this admission?: Yes (3) Breakthrough seizure Is this a current diagnosis for this admission?: Yes (4) SHARLENE (acute kidney injury) Is this a current diagnosis for this admission?: Yes - Additional Information Resuscitation Status: Full Code Discharge Diet: As Tolerated Discharge Activity: Activity As Tolerated Prescriptions: Divalproex Sodium [Depakote ER 500 mg Tab.sr] 500 mg PO ACLUNCH #30 tab.sr.24h Home Medications: Amphetamine Sulfate [Evekeo] 5 mg PO BID 03/11/19 Divalproex Sodium [Depakote ER 500 mg Tab.sr] 500 mg PO ACLUNCH #30 tab.sr.24h 03/15/19 History of Present Illness History of Present Illness: CHUCKIE BAL is a 38 year old male with a remote history of childhood seizure not on any antiseizure medication, diet controlled DM type 2 who was brought in after [place] 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 He says he has been apparently well and did not have any acute complaint. He says he did not feel any dizziness, palpitations or other symptoms. He was apparently found by school personnel lying unresponsive on [facility]. Nobody witnessed the event. There is no reported urinary or bowel incontinence. 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 He does complain of lower back pain which he said started this morning but before he passed out. Hospital Course Hospital Course: CHUCKIE BAL is a 38 year old male with a remote history of childhood seizure not on any antiseizure medication, diet controlled DM type 2 who was brought in after he was [place]. He was admitted for syncope secondary to questionable seizure versus heat exhaustion. He was noted to be in acute renal failure and rhabdomyolysis. He was started on IV Keppra in the ER and was switched to oral Keppra. His EEG did confirm a seizure disorder and showed epileptiform discharges. His CK initially improved and his creatinine recovered with IV fluids. However subsequent CK levels trended up significantly despite aggressive IV fluid resuscitation. It was suspected that Keppra was contributing to CK elevation as it can potentially cause elevated creatinine kinase. Keppra was switched to Depakote and his CK did significantly trend down after stopping the Keppra. He will closely follow-up with his PCP so he can be further referred to a neurologist for further recommendations. Physical Exam Vital Signs: Temp Pulse Resp BP Pulse Ox 98.3 F 60 16 133/72 H 99 03/15/19 09:07 03/15/19 09:07 03/15/19 09:07 03/15/19 09:07 03/15/19 09:07 Intake & Output 03/14/19 03/15/19 03/16/19 06:59 06:59 06:59 Intake Total 3260 6275 Balance 3260 6275 Weight 181 lb 7.047 oz 172 lb 2.896 oz General appearance: PRESENT: no acute distress, well-developed, well-nourished Head exam: PRESENT: atraumatic, normocephalic Eye exam: PRESENT: conjunctiva pink, EOMI, PERRLA. ABSENT: scleral icterus Ear exam: PRESENT: normal external ear exam Mouth exam: PRESENT: moist, tongue midline Neck exam: ABSENT: carotid bruit, JVD, lymphadenopathy, thyromegaly Respiratory exam: PRESENT: clear to auscultation dee. ABSENT: rales, rhonchi, wheezes Cardiovascular exam: PRESENT: RRR. ABSENT: diastolic murmur, rubs, systolic murmur Pulses: PRESENT: normal dorsalis pedis pul GI/Abdominal exam: PRESENT: normal bowel sounds, soft. ABSENT: distended, guarding, mass, organolmegaly, rebound, tenderness Rectal exam: PRESENT: deferred Neurological exam: PRESENT: alert, awake, oriented to person, oriented to place, oriented to time, oriented to situation, CN II-XII grossly intact. ABSENT: motor sensory deficit Results Laboratory Results: 03/12/19 05:15 03/15/19 04:14 03/15/19 04:14 Sodium 141.0 Potassium 4.0 Chloride 106 Carbon Dioxide 25 Anion Gap 10 BUN 8 Creatinine 0.81 Est GFR ( Amer) > 60 Est GFR (Non-Af Amer) > 60 Glucose 87 Calcium 8.7 03/11/19 03/11/19 03/12/19 10:09 10:09 05:15 Creatine Kinase 2009 H 2622 H CK-MB (CK-2) 3.06 03/12/19 03/13/19 03/14/19 17:35 07:10 08:58 Creatine Kinase 2619 H 5378 H 9875 H CK-MB (CK-2) 03/14/19 03/15/19 14:10 04:14 Creatine Kinase 14057 H 7504 H CK-MB (CK-2) Impressions: Cervical Spine CT 03/11/19 00:00 IMPRESSION: NO ACUTE OR SIGNIFICANT FINDINGS IN THE CERVICAL SPINE. Head CT 03/11/19 00:00 IMPRESSION: NORMAL BRAIN CT WITHOUT CONTRAST. EVIDENCE OF ACUTE STROKE: NO. Lumbar Spine X-Ray 03/11/19 10:54 IMPRESSION: No acute findings. Renal Ultrasound 03/11/19 13:39 IMPRESSION: NORMAL RENAL AND BLADDER ULTRASOUND. Lumbar Spine MRI 03/14/19 00:00 IMPRESSION: Mild multilevel lumbar spondylosis, most pronounced at L5-S1 where there are mixed Modic type I/type II degenerative endplate changes as well as mild disc bulge/central disc protrusion resulting in mild bilateral left greater than right neural foraminal stenosis and mild central canal stenosis. copyright 2010 [employer]- All Rights Reserved Chest X-Ray 03/15/19 07:00 IMPRESSION: NO ACUTE DISEASE. Qualifiers - * PATIENT BEING DISCHARGED WITH ANY OF THE FOLLOWING DIAGNOSIS: No Acute Heart Failure Is this a Heart Failure Patient?: No
== END 2019-03-15 10:54 | disposition home or self-care (01) | DRG 558 ==
LOC: ER 09:59 → INTOOBSV 17:11 → UNDOADMOB 17:11 → EH 17:11 → OBSVTOIN 17:35 → EH 17:35 → 4N 20:48 → OBSVTOIN 03-13 13:27 → INTOOBSV 03-13 13:27 → UNDODISIN 03-15 10:54
PROVIDERS: ADMIT Internal Medicine; ATTEND Internal Medicine
DX: M62.82 Rhabdomyolysis (principal); N17.9 Acute kidney failure, unspecified; R41.82 Altered mental status, unspecified; G40.909 Epilepsy, unspecified, not intractable, without status epilepticus; E11.8 Type 2 diabetes mellitus with unspecified complications; M54.5 Low back pain; F90.9 Attention-deficit hyperactivity disorder, unspecified type
CPT/HCPCS: 36415; 70450; 71045; 72110; 72125; 72148; 76775; 80048; 80053; 81001; 82085; 82550; 82553; 83036; 83615; 83874; 84443; 85025; 87040; 93005; 93010; 95819; 96360; 96361; 99285; J1953; J7030